=== PATIENT | female | born 2000 ===

== ENCOUNTER 2024-11-24 00:54 | Emergency (ER) | payer OTHER ==
[2024-11-24 01:00] VITALS: BP 115/77; PULSE 74; RESP 17; TEMP 98.2; BMI 23.8
[2024-11-24] MEDS ORDERED: ACETAMINOPHEN 325 MG TABLET (FP) ONE (01:11)
[2024-11-24] MEDS ORDERED: IBUPROFEN 400 MG TABLET (FP) PO ONE (01:11)
[2024-11-24] MEDS ORDERED: LIDOCAINE 5% TOPICAL PATCH ONE (01:11)
[2024-11-24] MEDS: IBUPROFEN 400 MG TABLET (FP) PO ONE (01:12)
[2024-11-24] MEDS: LIDOCAINE 5% TOPICAL PATCH TP ONE (01:12)
[2024-11-24] MEDS: ACETAMINOPHEN 325 MG TABLET (FP) PO ONE (01:13)
[2024-11-24] MEDS ORDERED: LIDOCAINE PATCH REMOVAL MC SCH (22:00)
== END 2024-11-24 02:28 | disposition home or self-care (01) ==
LOC: FER 00:54
DX: M54.50 Low back pain, unspecified (principal)
CPT/HCPCS: 99283-25